=== PATIENT | female | born 1980 | race African-American/Black ===

== ENCOUNTER 2017-04-22 16:20 | Emergency (ER) | payer MEDICAID, OTHER ==
[~2017-04-22] VITALS: Ht 157.5 cm; Wt 87.0 kg
[~2017-04-22 16:20] MED LIST: CEPHALEXIN; MOTRIN; [UNRECOGNIZED DRUG - OTHER]
[2017-04-22] MEDS ORDERED: ACETAMINOPHEN WITH CODEINE 300/30MG TABLET PO ONE (18:00)
[2017-04-22 18:09] VITALS: BP 129/74
== END 2017-04-22 19:56 | disposition home or self-care (01) ==
LOC: ER 16:58
DX: M23.8X1 Other internal derangements of right knee (principal); Z88.3 Allergy status to other anti-infective agents; X50.1XXA Overexertion from prolonged static or awkward postures, initial encounter; Y93.68 Activity, volleyball (beach) (court); Y92.832 Beach as the place of occurrence of the external cause
CPT/HCPCS: 73562; 99284; L1830